=== PATIENT | male | born 1970 | race Caucasian/White ===

== ENCOUNTER → 2022-05-16 | Outpatient (CLI) | payer MEDICARE ==
[~2022-05-16] MED LIST: ATORVASTATIN CA20 MG PO; FENOFIBRATE145 MG PO; FLUOXETINE HCL20 MG PO; HUMALOG SQ; HYDROCODON-ACE1 EAC9 PO; JARDIANCE10 MG PO; LANTUS 3ML100 UNITS/ SQ; LISINOPRIL-HCT1 EAC1 PO; METFORMIN HCL500 MG PO; NEXIUM20 MG PO; VICTOZA 2-0.6 MG/0.1 SQ
== END ==
LOC: CT 07:30
PROVIDERS: ATTEND Family Medicine
DX: Z12.2 Encounter for screening for malignant neoplasm of respiratory organs (principal)
CPT/HCPCS: 71250

== ENCOUNTER → 2022-07-21 | Day surgery (SDC) | payer MEDICARE ==
[2022-07-18 13:58] LABS: HEMATOCRIT 37.7 % (38.2-49.6); HEMOGLOBIN 11.9 g/dL (14.0-18.0)
[2022-07-18 14:39] LABS: ANION GAP 14.6 mmol/L (8-16); CALCIUM 9.4 mg/dL (8.4-10.2); CREATININE, SERUM 0.9 mg/dL (0.72-1.25); POTASSIUM 4.6 mmol/L (3.5-5.1)
[~2022-07-21] MED LIST changes: +BALANCED SALT SOLN (OPTH) 15 ML BTL IO ONE; +BUPIVACAINE HC 0.75% PF 10ML VIAL INJ ONE; +CYCLOPENTOLATE HCL 2% OPTH SOLN 2 ML BTL OP ONE; +EPINEPHRINE HCL 1:1000 1ML 1 MG/ML AMP ONE; +GATIFLOXACIN(OPTH) 5 ML LIQD ONE; +LACTATED RINGER'S 1,000 ML ONE; +LIDOCAINE 2% /EPINEPHRINE 20 ML SDV INJ ONE; +LIDOCAINE HCL-PF 4% 40 MG/1 ML 5ML AMP ONE; +ONDANSETRON HCL INJ 2MG/ML 2ML 2 MG/ML VIAL ONE; +PHENYLEPHRINE HCL 2 ML DROPS ONE; +POVIDONE IODINE 0.05% 0.05 % ML PO ONE; +POVIDONE IODINE 5% (OPTH) 30 ML BTL ONE; +PROPOFOL IV EMULSION 10 MG/ML 20 ML VIAL ONE; +TOBRAMYCIN/DEXAMETHASONE(OPTH) 3.5 GM TUBE ONE; +VITAMIN C1000 MG PO; +VITAMIN D PO; +VITAMIN E400 UNI1 PO
[2022-07-21 10:40] VITALS: BP 150/82
== END | disposition home or self-care (01) ==
LOC: OR 07:35
PROVIDERS: ATTEND Ophthalmology
DX: H25.12 Age-related nuclear cataract, left eye (principal); E11.9 Type 2 diabetes mellitus without complications; I10 Essential (primary) hypertension; Z01.810 Encounter for preprocedural cardiovascular examination; Z01.812 Encounter for preprocedural laboratory examination; Z79.4 Long term (current) use of insulin; Z79.84 Long term (current) use of oral hypoglycemic drugs; Z79.899 Other long term (current) drug therapy; Z79.85 Long-term (current) use of injectable non-insulin antidiabetic drugs
CPT/HCPCS: 36415 ×2; 66984; 80048; 82948; 85014; 85018; 93005; J0171; J2001; J2405; J2704; J7121; V2632

== ENCOUNTER → 2022-08-04 | Day surgery (SDC) | payer MEDICARE ==
[~2022-08-04] MED LIST changes: +ACETAMINOPHEN 1000 MG/100 ML 100 ML IV ONE; +ACETAMINOPHEN-1 EAC4 PO; -BALANCED SALT SOLN (OPTH) 15 ML BTL IO ONE; -BUPIVACAINE HC 0.75% PF 10ML VIAL INJ ONE; +BUPIVACAINE HCL 0.5% INJ 30 ML VIAL INJ ONE; -CYCLOPENTOLATE HCL 2% OPTH SOLN 2 ML BTL OP ONE; +DEXAMETHASONE SOD PHOS INJ 4 MG/ML SDV ONE; -EPINEPHRINE HCL 1:1000 1ML 1 MG/ML AMP ONE; +FENTANYL CITRATE/PF 100MCG/2 ML INJ ONE; -GATIFLOXACIN(OPTH) 5 ML LIQD ONE; +KETOROLAC TROMETHAMINE 30 MG/ML VIAL ONE; -LACTATED RINGER'S 1,000 ML ONE; -LIDOCAINE 2% /EPINEPHRINE 20 ML SDV INJ ONE; +LIDOCAINE HCL 2% LOCAL INJ 5 ML SDV VIAL INJ ONE; -LIDOCAINE HCL-PF 4% 40 MG/1 ML 5ML AMP ONE; +MUPIROCIN 2% OINT 22 GM TUBE ONE; -PHENYLEPHRINE HCL 2 ML DROPS ONE; -POVIDONE IODINE 5% (OPTH) 30 ML BTL ONE; +SEVOFLURANE INHAL SOLN 250 ML PEN BTL ONE; -TOBRAMYCIN/DEXAMETHASONE(OPTH) 3.5 GM TUBE ONE
[2022-08-04 08:50] VITALS: BP 120/65
== END | disposition home or self-care (01) ==
LOC: OR 07:34
PROVIDERS: ATTEND Plastic Surgery
DX: G56.01 Carpal tunnel syndrome, right upper limb (principal); M65.841 Other synovitis and tenosynovitis, right hand; Z01.810 Encounter for preprocedural cardiovascular examination; Z79.4 Long term (current) use of insulin; Z79.84 Long term (current) use of oral hypoglycemic drugs; Z79.85 Long-term (current) use of injectable non-insulin antidiabetic drugs; Z79.899 Other long term (current) drug therapy
CPT/HCPCS: 25115; 36415; 82948; 93005; J0131; J0690; J1100; J1885; J2001; J2405; J2704; J3010

== ENCOUNTER 2023-11-03 00:21 | Inpatient (IN) | payer MEDICARE, OTHER ==
[2023-11-03] VITALS (12 sets, daily range): BP systolic 143–168; BP diastolic 64–81; PULSE 77–93; RESP 17–20; TEMP 97.4–98.5; O2SAT 92–100
[~2023-11-03] VITALS: Ht 180.3 cm; Wt 104.3 kg
[~2023-11-03 00:21] MED LIST changes: -ACETAMINOPHEN 1000 MG/100 ML 100 ML IV ONE; -BUPIVACAINE HCL 0.5% INJ 30 ML VIAL INJ ONE; -DEXAMETHASONE SOD PHOS INJ 4 MG/ML SDV ONE; -FENTANYL CITRATE/PF 100MCG/2 ML INJ ONE; -KETOROLAC TROMETHAMINE 30 MG/ML VIAL ONE; -LIDOCAINE HCL 2% LOCAL INJ 5 ML SDV VIAL INJ ONE; -MUPIROCIN 2% OINT 22 GM TUBE ONE; -ONDANSETRON HCL INJ 2MG/ML 2ML 2 MG/ML VIAL ONE; -POVIDONE IODINE 0.05% 0.05 % ML PO ONE; -PROPOFOL IV EMULSION 10 MG/ML 20 ML VIAL ONE; -SEVOFLURANE INHAL SOLN 250 ML PEN BTL ONE
[2023-11-03] MEDS: TRAMADOL HCL 50 MG TAB PO ONE (02:54)
[2023-11-03 02:57] LABS: BASOPHILS # (AUTO) 0.1 (0.0-0.1); BASOPHILS % 0.7 % (0.0-1.0); EOSINOPHILS # (AUTO) 0.4 (0.0-0.4); EOSINOPHILS % 2.1 % (0.0-6.0); HEMOGLOBIN 12.3 g/dL (14.0-18.0); LYMPHOCYTES # (AUTO) 3.9 (1.0-3.2); LYMPHOCYTES % 23.5 % (18.0-39.1); MEAN CORPUSCULAR HEMOGLOBIN 28.7 pg (28-32); MEAN CORPUSCULAR HGB CONC 32.4 g/dL (31-35); MEAN CORPUSCULAR VOLUME 88.6 fL (81-99); MONOCYTES # (AUTO) 1.4 (0.2-0.8); MONOCYTES % 8.6 % (4.4-11.3); NEUTROPHILS # (AUTO) 10.9 (2.1-6.9); NEUTROPHILS % 64.6 % (38.7-80.0); PLATELET COUNT 405 x10e3/uL (140-360); RED BLOOD COUNT 4.29 x10e6/uL (4.3-5.7); RED CELL DISTRIBUTION WIDTH 14.4 % (11.7-14.4); WHITE BLOOD COUNT 16.78 x10e3/uL (4.8-10.8)
[2023-11-03 03:08] LABS: CALCIUM 9.4 mg/dL (8.4-10.2); CREATININE, SERUM 2.33 mg/dL (0.72-1.25)
[2023-11-03] MEDS ORDERED: DEXTROSE 50% SYRINGE 50 ML IV PRN (04:00)
[2023-11-03] MEDS ORDERED: ONDANSETRON HCL INJ 2MG/ML 2ML 2 MG/ML VIAL IV PRN (04:00)
[2023-11-03] MEDS ORDERED: Morphine 4mg INJECTION 4 MG/ML INJ IV PRN (04:00)
[2023-11-03] MEDS: SODIUM CHLORIDE 0.9% 1000ML 1,000 ML IV ONE (05:15)
[2023-11-03] MEDS: INSULIN REGULAR, HUMAN 100 UNIT/1 ML SQ SCH (09:11)
[2023-11-03] MEDS: HYDROCODONE/APAP 10MG-325MG TAB PO PRN (12:49)
[2023-11-04] VITALS (8 sets, daily range): BP systolic 132–159; BP diastolic 55–73; PULSE 75–101; RESP 16–20; TEMP 97.7–98.3; O2SAT 98–100
[2023-11-04 06:14] LABS: BASOPHILS % 0.4 % (0.0-1.0); EOSINOPHILS # (AUTO) 0.3 (0.0-0.4); EOSINOPHILS % 2.8 % (0.0-6.0); HEMATOCRIT 37.3 % (38.2-49.6); HEMOGLOBIN 11.8 g/dL (14.0-18.0); LYMPHOCYTES # (AUTO) 3.3 (1.0-3.2); LYMPHOCYTES % 30.5 % (18.0-39.1); MEAN CORPUSCULAR HEMOGLOBIN 28.5 pg (28-32); MEAN CORPUSCULAR HGB CONC 31.6 g/dL (31-35); MEAN CORPUSCULAR VOLUME 90.1 fL (81-99); NEUTROPHILS % 56.8 % (38.7-80.0); PLATELET COUNT 325 x10e3/uL (140-360); RED BLOOD COUNT 4.14 x10e6/uL (4.3-5.7); WHITE BLOOD COUNT 10.64 x10e3/uL (4.8-10.8)
[2023-11-04 06:48] LABS: ANION GAP 10.1 mmol/L (8-16); CREATININE, SERUM 1.24 mg/dL (0.72-1.25); POTASSIUM 5.1 mmol/L (3.5-5.1)
[2023-11-04 07:02] LABS: CALCIUM 11.6 mg/dL (8.4-10.2)
[2023-11-04] MEDS: SODIUM CHLORIDE 0.9% 250ML 250 ML ONE (08:10)
[2023-11-04] MEDS: ASCORBIC ACID 500 MG TAB PO SCH (08:19)
[2023-11-04] MEDS: PANTOPRAZOLE SODIUM 20 MG TABLET.DR PO SCH (08:19)
[2023-11-04] MEDS: FLUOXETINE HCL 20 MG CAP PO SCH (08:19)
[2023-11-04] MEDS: ATORVASTATIN 40 MG TAB PO SCH (20:43)
[2023-11-04] MEDS: INSULIN GLARGINE 100 UNITS/ML VIAL SQ SCH (20:49)
[2023-11-05] VITALS: BP 144/73; PULSE 74; RESP 18; TEMP 97.8; O2SAT 99
[2023-11-05 04:00] VITALS: BP 170/80; PULSE 92; RESP 20; TEMP 97.7; O2SAT 100
[2023-11-05 06:33] LABS: ANION GAP 15.7 mmol/L (8-16); CALCIUM 10.7 mg/dL (8.4-10.2); CREATININE, SERUM 1.01 mg/dL (0.72-1.25); POTASSIUM 4.7 mmol/L (3.5-5.1)
[2023-11-05 08:01] VITALS: BP 143/78; PULSE 88; RESP 18; TEMP 98.4; O2SAT 98
[2023-11-05 09:24] VITALS: BP 143/78; PULSE 88; RESP 18; TEMP 98.4; O2SAT 98
[2023-11-05] MEDS ORDERED: MINOCIN100 M1 PO (12:38)
== END 2023-11-05 12:46 | disposition home or self-care (01) | DRG 729 ==
LOC: ER 00:30 → ERHOLD 03:54 → MED/SURG2 04:39
PROVIDERS: ADMIT Internal Medicine; ATTEND Internal Medicine
DX: N50.89 Other specified disorders of the male genital organs (principal); N17.9 Acute kidney failure, unspecified; N49.2 Inflammatory disorders of scrotum; E11.22 Type 2 diabetes mellitus with diabetic chronic kidney disease; I12.9 Hypertensive chronic kidney disease with stage 1 through stage 4 chronic kidney disease, or unspecified chronic kidney disease; E78.5 Hyperlipidemia, unspecified; N18.9 Chronic kidney disease, unspecified; N43.3 Hydrocele, unspecified; E66.9 Obesity, unspecified; F41.9 Anxiety disorder, unspecified; Z11.52 Encounter for screening for COVID-19; Z79.4 Long term (current) use of insulin; Z79.84 Long term (current) use of oral hypoglycemic drugs; F17.200 Nicotine dependence, unspecified, uncomplicated
CPT/HCPCS: 36415; 74176; 80048; 82948; 85025; 94799; 99284; J1815; J2543; J7030; J7050; U0002